=== PATIENT | male | born 1960 | race Caucasian/White ===

== ENCOUNTER 2020-08-05 14:50 | Emergency (ER) | payer OTHER ==
[~2020-08-05] VITALS: Ht 170.2 cm; Wt 97.5 kg
[~2020-08-05 14:50] MED LIST: ACCUNEB SO1.25 MG/1 INH; ADVAIR; ALBUTEROL INH INH; ALBUTEROL PO; ALBUTEROL SULFAT2 MG PO; ATENOLOL 50MG T50 M1 PO; BREO ELLIPTA 11 EACH IH; BROVANA15 MCG/2 M INH; BUTALB-APAP-CA1 EACH PO; CARISOPRODOL 3350 MG PO; CLONAZEPAM 0.50.5 M1 PO; CYMBALTA60 MG PO; DIFLUCAN200 MG PO; FEXOFENADINE H180 MG PO; FLONASE 0.05%50 MCG NASAL; FLONASE16 GM; HYDROCODON-ACE1 EAC7 PO; IPRAT-ALBUT 0.5-3 ML INH; LASIX 40 MG TAB40 M2 PO; LIORESAL 10 MG10 MG PO; LYRICA 75 MG CA75 MG PO; MAXALT5 MG PO; METHADONE HCL5 MG PO; MOBIC15 MG PO; MS CONTIN15 MG PO; NORVASC10 MG PO; NORVASC5 MG PO; OXCARBAZEPINE150 MG PO; OXYCONTIN15 MG PO; OXYCONTIN20 M1 PO; PEPCID40 MG PO; PERCOCET 10-321 EACH PO; POTASSIUM CHLO10 MEQ PO; PRAVACHOL40 MG PO; PREDNISONE 1 MG1 M1 PO; PRINIVIL20 MG PO; PROTONIX40 M2 PO; PULMICORT1 MG/2 ML INH; ROXICODONE15 M1 PO; SERTRALINE HCL50 MG PO; SPIRIVA INH; ZANAFLEX4 MG PO; ZANTAC 150MG T150 MG PO; ZOLOFT100 MG PO
[2020-08-05 16:38] VITALS: BP 138/71
== END 2020-08-05 16:39 | disposition home or self-care (01) ==
LOC: M.ERS 14:50
DX: S61.412A Laceration without foreign body of left hand, initial encounter (principal); I10 Essential (primary) hypertension; E78.00 Pure hypercholesterolemia, unspecified; K21.9 Gastro-esophageal reflux disease without esophagitis; G47.30 Sleep apnea, unspecified; J45.909 Unspecified asthma, uncomplicated; Z88.6 Allergy status to analgesic agent; W10.8XXA Fall (on) (from) other stairs and steps, initial encounter; Y93.89 Activity, other specified; Y92.89 Other specified places as the place of occurrence of the external cause; Y99.8 Other external cause status